=== PATIENT | female | born 1950 | race Caucasian/White ===

== ENCOUNTER 2021-07-31 14:42 | Outpatient (CLI) | payer MEDICARE, OTHER, SELFPAY ==
--- NOTE | 2021-07-31 14:54 | MM_ITS ---
WS: [id number] BILATERAL SCREENING DIGITAL MAMMOGRAM WITH CAD HISTORY: SCREENING COMPARISON: 06/24/2019 and 07/01/2017 Bilateral CC and MLO views submitted. Computer aided detection analyzed. Breast composition: The breasts are heterogeneously dense, which may obscure small masses. No suspici ous masses, microcalcifications or architectural distortion. Benign locations within each breast. MM/[place] [id number] IMPRESSION: BI-RADS: 2-Benign FOLLOW UP: 1 Year Follow-up
--- NOTE | 2021-07-31 15:37 | XR_ITS ---
WS: [id number] SCREENING DEXA SCAN [facility] CLINICAL INFORMATION: POST MENOPAUSAL COMPARISON: FINDINGS: Lumbar scoliosis. The L1-L4 bone mineral density measures 1.324 g/cm2. This corresponds to a T score score of 1.2 and Z score of 3.2. Left femoral neck bone mineral density measures 0.898 (g/cm2). This corresponds to a T score of -0.9 (no units) and Z score of 0.9 (no units). XR/XR DEXA axial skeleton* [id number] IMPRESSION: Normal bone mineralization in the lumbar spine. Normal bone mineralization in t he femoral neck approaching osteopenia. Patient's FRAX calculated 10 year probability for major osteoporotic fracture i s 15.8 % and osteoporotic hip fracture is 3.4%.
== END 2021-07-31 14:43 | disposition home or self-care (01) ==
LOC: RADSHAW 14:51
PROVIDERS: PCP Family Medicine; Visit Provider Family Medicine
DX: Z12.31 Encounter for screening mammogram for malignant neoplasm of breast (principal); Z78.0 Asymptomatic menopausal state
CPT/HCPCS: 77067; 77080

== ENCOUNTER 2022-08-02 13:37 | Outpatient (CLI) | payer MEDICARE, OTHER, SELFPAY ==
--- NOTE | 2022-08-02 13:46 | MM_ITS ---
WS: [id number] BILATERAL 3D TOMOSYNTHESIS DIGITAL SCREENING MAMMOGRAPHY WITH CAD CLINICAL INFORMATION: SCREENING HISTORY: Screening mammogram. No current complaints. COMPARISON: 2021 TECHNIQUE: Bilateral CC and MLO views. FINDINGS: The breasts are composed of heterogeneous fibroglandular density tissue, which can limit the detectio n of small underlying mass lesions. No suspicious mass, asymmetry, calcifications, or architectural d istortion. No evidence of malignancy. Punctate and lucent centered calcifications. Stable area of arc hitectural distortion upper outer LEFT breast. This is stable since 2017. MM/[place] [id number] IMPRESSION: BI-RADS: 2-Benign FOLLOW UP: 1 Year Follow-up Recommend return to annual screening mammography.
== END 2022-08-02 13:38 | disposition home or self-care (01) ==
LOC: RAD 13:39
PROVIDERS: PCP Family Medicine; Visit Provider Family Medicine
DX: Z12.31 Encounter for screening mammogram for malignant neoplasm of breast (principal)
CPT/HCPCS: 77063; 77067

== ENCOUNTER 2023-08-06 04:34 | Emergency (ER) | payer MEDICARE, OTHER, SELFPAY ==
[2023-08-06 04:38] VITALS: BP 136/75; PULSE 70; RESP 18; TEMP 36.8; O2SAT 95; BMI 18.8
--- NOTE | 2023-08-06 04:59 | XRR_ITS ---
PROCEDURE INFORMATION: Exam: XR Right Hip Exam date and time: 08/06/2023 5:58 AM Age: 73 years old Clinical indication: Hip pain; Right hip; Prior surgery; Surgery date: 6+ months; Surgery type: Replaced; Patient HX: Patient says she was just watching the football game Saturday when her hip started hurting; Additional info: Right hip pain no trauma TECHNIQUE: Imaging protocol: Radiologic exam of the right hip. Views: 1 view hip with pelvis when performed. COMPARISON: CR XR hip RT 2-3V wo/w pel* [id number] 07/17/2018 3:47 PM FINDINGS: Bones/joints: Total hip replacement. Anatomic alignment. Bone and metal are intact. No fracture or dislocation. Degenerative changes of the lower lumbar spine. Left hip replacement as well. Soft tissues: Unremarkable. Vasculature: Arterial calcifications. XR/XR hip RT 2-3V wo/w pel* [id number] IMPRESSION: No acute findings.
--- NOTE | 2023-08-06 05:32 | ED_ITS ---
Documented by User: Jeremy Jacobo DO 08/06/23 05:35 HPI - Extremity Problem General: Chief complaint: Extremity Injury, Lower Stated complaint: right hip pain Time Seen by Provider: 08/06/23 04:38 History of Present Illness: Patient presents to the ER with complaints of right hip pain. Patient denies any recent trauma to it. Patient says she has been having hip pain since Saturday. She think she may have sat wrong on it during the [employer] game. Patient is now using a cane as because when she puts weight on it it hurts. Patient never uses a cane regularly. Patient is a regular runner. Patient did take an old hydrocodone she found this morning but is unsure of the dose. Patient did have a hip replacement 4 to 5 years ago in the right hip but denies any chronic pain after the replacement. Review of Systems General: Reports: 10 or more systems reviewed and unremarkable except in HPI and below Physical Exam Const: COMMON NORMALS: no acute distress, average body habitus, patient oriented x3, no limitations, healthy appearing, alert and well nourished HENMT: COMMON NORMALS: normocephalic, atraumatic, hearing grossly normal bilaterally, external ears normal, Normal external nose present, moist oral mu cous membranes and oropharynx normal HEAD & SCALP: normocephalic and atraumatic NOSE: Normal external nose present EXTERNAL EAR: Yes external ears normal Neck/C-Spine: COMMON NORMALS: no JVD Chest: COMMONS NORMALS: normal inspection of the chest and normal palpation of entire chest wall Resp: COMMON NORMALS: normal respiratory effort, No retractions, No use of accessory muscles and clear to auscultation bilaterally AUSCULTATION: clear to auscultation bilaterally Cardio: COMMON NORMALS: no JVD, regular rate, regular rhythm, S1 normal heart sound present, S2 normal heart sound present, No gallops present (Cardio), No clicks present (Cardio), No murmurs present (Cardio) and No rub (Cardio) RATE: regular rate RHYTHM: regular rhythm HEART SOUNDS: S1 normal heart sound present and S2 normal heart sound present GI: COMMON NORMALS: Normal to inspection, nondistended, normoactive bowel sounds present, Soft to palpation, non-tender, No hepatosplenomegaly present and no masses PALPATION: Yes Soft to palpation and Yes No hepatosplenomegaly present Extremity: NARRATIVE EXTREMITY EXAM: Minimal tender to palpate over right hip region. No obvious to crepitus deformity noted. Neuro: COMMON NORMALS: patient oriented x3 SENSORIUM/ORIENTATION: Yes alert Course Vital Signs: Vital signs: Vital Signs Temperature 98.2 F 08/06/23 04:38 Pulse Rate 71 08/06/23 05:38 Respiratory Rate 16 08/06/23 05:38 Blood Pressure 136/75 08/06/23 05:38 Pulse Oximetry 94 08/06/23 05:38 Oxygen Delivery Me thod Room Air 08/06/23 05:38 MDM - Extremity (Nontraumatic) Medical Records I reviewed the patient's medical records. Lab Data I reviewed the patient's lab results. Radiology Impressions Hip/Pelvis X-Ray 08/06/23 04:59 IMPRESSION: No acute findings. All radiology interpretation(s) finalized by discharge Discharge Plan Discharge Patient Disposition: Home Clinical Impression: SI (sacroiliac) pain Condition: Stable Prescriptions: New diclofenac sodium 75 mg tablet,delayed release (DR/EC) 75 mg PO Q12H PRN (Reason: pain) Qty: 20 0RF No Action multivitamin Tablet 1 tab PO DAILY garlic 100 mg Tablet 100 mg PO DAILY levothyroxine 100 mcg tablet See Rx Instructions .ROUTE .COMPLEX Rx Instructions: Take 1 tablet by mouth 4 times weekly. levothyroxine 88 mcg tablet See Rx Instructions .ROUTE .COMPLEX Rx Instructions: Take 1 tablet by mouth 3 times per week. Vitamin C 500 mg Tablet 250 mg PO DAILY niacin 500 mg Tablet 500 mg PO DAILY Discharge Orders: Discharge ED (Routine); Ordered 08/06/23 Ordered By: Roshan Ryan Referrals: Tenzin Shah MD [Primary Care Provider] - Discharge Diet: Usual diet Discharge Activity: Increase activity as tolerated Patient Instructions: Sacroiliitis (ED), Opioid Safety, Pain Management Activity Restrictions/Additional Instructions: Thank you for choosing [facility] for your healthcare needs today. Please realize this is an emergency room and that we are providing you with a medical screening exam and this may not be complete and all inclusive of all the testing and or work up that you may need to determine your ailment or severity of your illness. It is very important that you follow up as instructed or that you return to the Emergency Department should you have concerns or if your condition changes or worsens in any way. Sign Out Sign Out Data: Patient Sign Out occurred on 08/06/23 at 06:22. Patient's care was discussed, and care was transferred from Jeremy Jacobo DO to Roshan Ryan DO. 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 Imaging is negative any more of her pain is referred to the SI joint she has no trauma associated discharge home with diclofenac to use as needed follow-up with primary care if not improving Lab Data Radiology Impressions Hip/Pelvis X-Ray 08/06/23 04:59 IMPRESSION: No acute findings. Discharge Plan Discharge Patient Disposition: Home Clinical Impression: SI (sacroiliac) pain Condition: Stable Prescriptions: New diclofenac sodium 75 mg tablet,delayed release (DR/EC) 75 mg PO Q12H PRN (Reason: pain) Qty: 20 0RF No Action multivitamin Tablet 1 tab PO DAILY garlic 100 mg Tablet 100 mg PO DAILY levothyroxine 100 mcg tablet See Rx Instructions .ROUTE .COMPLEX Rx Instructions: Take 1 tablet by mouth 4 times weekly. levothyroxine 88 mcg tablet See Rx Instructions .ROUTE .COMPLEX Rx Instructions: Take 1 tablet by mouth 3 times per week. Vitamin C 500 mg Tablet 250 mg PO DAILY niacin 500 mg Tablet 500 mg PO DAILY Discharge Orders: Discharge ED (Routine); Ordered 08/06/23 Ordered By: Roshan Ryan Referrals: Tenzin Shah MD [Primary Care Provider] - Discharge Diet: Usual diet Discharge Activity: Increase activity as tolerated Patient Instructions: Sacroiliitis (ED), Opioid Safety, Pain Management Activity Restrictions/Additional Instructions: Thank you for choosing [facility] for your healthcare needs today. Please realize this is an emergency room and that we are providing you with a medical screening exam and this may not be complete and all inclusive of all the testing and or work up that you may need to determine your ailment or severity of your illness. It is very important that you follow up as instructed or that you return to the Emergency Department should you have concerns or if your condition changes or worsens in any way. Sign Out Sign Out Data: Patient Sign Out occurred on 08/06/23 at 06:22. Patient's care was discussed, and care was transferred from Jeremy Jacobo DO to Roshan Ryan DO. 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
[2023-08-06] MEDS: ketorolac 60 mg/2 mL INJ IM (05:36)
[2023-08-06 05:38] VITALS: BP 136/75; PULSE 71; RESP 16; O2SAT 94
== END 2023-08-06 08:33 | disposition home or self-care (01) ==
PROVIDERS: Emergency Provider Family Medicine; PCP Family Medicine
DX: M53.3 Sacrococcygeal disorders, not elsewhere classified (principal)
CPT/HCPCS: 73502; 96372; 99284; J1885

== ENCOUNTER 2023-08-21 12:01 | Outpatient (RCR) | payer MEDICARE, OTHER, SELFPAY | END 2023-08-29 23:59 | disposition home or self-care (01) | LOC: SPT 12:01 | PROVIDERS: PCP Family Medicine; Visit Provider Family Medicine | DX: M76.01 Gluteal tendinitis, right hip (principal) | CPT/HCPCS: 97110; 97161 ==